=== PATIENT | female | born 2000 | race African-American/Black ===

== ENCOUNTER 2021-07-25 13:08 | Outpatient (CLI) | payer OTHER ==
[2021-07-25 20:45] LABS: BACTERIAL VAGINOSIS DNA NEGATIVE (NEGATIVE); CANDIDA GLABRATA DNA NEGATIVE (NEGATIVE); CANDIDA GROUP DNA NEGATIVE (NEGATIVE); CANDIDA KRUSEI DNA NEGATIVE (NEGATIVE); TRICHOMONAS VAGINALIS DNA NEGATIVE (NEGATIVE)
[2021-07-25 21:29] LABS: CHLAMYDIA TRACHOMATIS DNA NEGATIVE (NEGATIVE); NEISSERIA GONORRHOEAE DNA NEGATIVE (NEGATIVE); TRICHOMONAS VAGINALIS DNA NEGATIVE (NEGATIVE)
== END 2021-07-25 23:59 | disposition home or self-care (01) ==
LOC: LAB.N 13:08
PROVIDERS: ATTEND Family Medicine
DX: R39.9 Unspecified symptoms and signs involving the genitourinary system (principal); N93.9 Abnormal uterine and vaginal bleeding, unspecified
CPT/HCPCS: 87077; 87086; 87181; 87491; 87591; 87661; 87801